=== PATIENT | female | born 1980 | race Caucasian/White ===

== ENCOUNTER 2016-06-21 09:13 | Emergency (ER) | payer OTHER ==
[~2016-06-21] VITALS: Ht 157.5 cm; Wt 68.0 kg
[2016-06-21 09:14] VITALS: Ht 157.5 cm; Wt 68.0 kg
[2016-06-21] MEDS ORDERED: ONDANSETRON 4 MG INJ IV STA (09:52)
[2016-06-21] MEDS ORDERED: KETOROLAC 30 MG INJ IV STA (09:52)
[2016-06-21 10:19] LABS: ADD SCAN DIFF NO
[2016-06-21 10:22] LABS: URINE COLOR LT. YELLOW (YELLOW)
[2016-06-21 10:23] LABS: ADD UMIC YES; URINE BILIRUBIN (Dip) NEGATIVE (NEGATIVE); URINE BLOOD (Dip) TRACE (NEGATIVE); URINE GLUCOSE (Dip) NEGATIVE (NEGATIVE); URINE KETONES (Dip) NEGATIVE (NEGATIVE); URINE LEUKOCYTE ESTERASE (Dip) NEGATIVE (NEGATIVE); URINE NITRITE (Dip) NEGATIVE (NEGATIVE); URINE TOTAL PROTEIN (Dip) NEGATIVE (NEGATIVE); URINE UROBILINOGEN (Dip) 0.2 E.U./dL (0.1-1.0)
[2016-06-21 10:28] LABS: BASOPHIL # 0.1 10^3/ul (0.0-0.1); BASOPHILS % 0.6 % (0.0-2.0); EOSINOPHILS # 0.1 10^3/ul (0.0-0.5); EOSINOPHILS % 1.5 % (0.0-7.0); HEMATOCRIT 39.2 % (37.0-47.0); HEMOGLOBIN 12.5 g/dl (12.0-16.0); LYMPHOCYTES # 2.1 10^3/ul (0.8-2.9); LYMPHOCYTES % 24.2 % (15.0-51.0); MEAN CORPUSCULAR HEMOGLOBIN 26.9 pg (29.0-33.0); MEAN CORPUSCULAR HGB CONC 31.9 g/dl (32.0-37.0); MEAN CORPUSCULAR VOLUME 84.5 fl (82.0-101.0); MEAN PLATELET VOLUME 10.6 fl (7.4-10.4); MONOCYTE # 0.5 10^3/ul (0.3-0.9); MONOCYTES % 5.9 % (0.0-11.0); NEUTROPHIL # 5.8 10^3/ul (1.6-7.5); NEUTROPHILS % 67.4 % (39.0-77.0); PLATELET COUNT 282 10^3/UL (140-415); RED BLOOD COUNT 4.64 10^6/ul (4.20-5.40); RED CELL DISTRIBUTION WIDTH 13.4 % (11.5-14.5); WHITE BLOOD COUNT 8.5 10^3/ul (4.8-10.8)
[2016-06-21 10:29] LABS: ALBUMIN 4.3 g/dl (3.3-4.9)
[2016-06-21 10:30] LABS: POTASSIUM 3.7 mmol/L (3.5-5.1)
[2016-06-21 10:32] LABS: BILIRUBIN,INDIRECT 0.3 mg/dl (0-1.1); BILIRUBIN,TOTAL 0.3 mg/dl (0.2-1.3); CREATININE 0.64 mg/dl (0.44-1.00)
[2016-06-21 10:33] LABS: ALBUMIN/GLOBULIN RATIO 1.38; TOTAL PROTEIN 7.4 g/dl (6.1-8.1)
[2016-06-21 10:38] LABS: BACTERIA,URINE RARE; URINE RBCS 0-2 /HPF (0)
--- NOTE | 2016-06-21 10:56 | RADRPT ---
PROCEDURE: CT Abdomen and Pelvis without contrast. CLINICAL INDICATION: Right upper quadrant pain TECHNIQUE: CT of the abdomen and pelvis was performed on a multi-detector scanner without IV contr ast. Coronal and sagittal images were reformatted from the axial data set. One or more of the foll owing dose reduction techniques were used: automated exposure control, adjustment of the mA and/or kV according to patient size, use of iterative reconstruction technique. CTDI = 13.72 mGy. DLP = 77 4.25 mGy-cm. COMPARISON: None. FINDINGS: CT abdomen: The lung bases are clear. The heart size is normal, without pericardial effusion. Liver demonstrat es scattered benign cysts. Cholelithiasis is noted without evidence for cholecystitis. Biliary ozzie e, pancreas, spleen, adrenal glands and left kidney are unremarkable. Tiny nonobstructive right joshua al calculus is noted, without ureterolithiasis or obstructive uropathy. The stomach is grossly unre markable. The aorta is of normal caliber. There is no retroperitoneal lymphadenopathy. The kevyn hepatis reg ion is clear. CT pelvis: No bowel obstruction, free intraperitoneal air or abscess is identified. The appendix is well visua lized and normal. There is no diverticulosis, diverticulitis or colitis. Urinary bladder, uterus a nd adnexa are grossly unremarkable. No pelvic mass, free fluid or lymphadenopathy is identified. The surrounding osseous structures are unremarkable. No osteolytic or osteoblastic lesion is detect ed. IMPRESSION: 1. Cholelithiasis is noted without evidence for cholecystitis. 2. Tiny nonobstructive right renal calculus is seen, without ureterolithiasis or obstructive uropat hy. 3. Normal appendix. 4. No mass, lymphadenopathy, or focal acute inflammatory process is identified. RPTAT: PP .Irving Garcia MD, MD Date Time Electronically viewed and signed by .Irving Garcia MD, MD on 06/21/2016 10:55 .R/
[2016-06-21] MEDS ORDERED: IBUP-1542 PO (11:03)
[2016-06-21] MEDS ORDERED: ONDA4TAB14 PO (11:15)
[2016-06-21] MEDS ORDERED: HYDR-906 PO (11:15)
--- NOTE | 2016-06-21 11:21 | ERD ---
ER Documentation Chief Complaint Date/Time DATE: 06/21/16 TIME: 11:20 Chief Complaint rt flank pain x 1 week on and off with nausea HPI Patient is a 36-year-old female who presents with intermittent right flank pain 1 week. Patient states that the pain originates in her right flank region and radiates up into her right abdomen. Patient states that the pain has been intermittent for the last week. Patient states today the pain was more severe. Patient states that her current pain is a 8 out of 10. Patient states her pain is worse with deep breaths. Patient denies any chest pain, shortness of breath, vomiting, fever, chills. Patient does report feeling nauseous. Patient also complains of malodorous urine. She denies any frequency, urgency or hematuria. Patient states her last menstrual period was on June 07, 2016. Patient denies any excessive vaginal discharge or vaginal bleeding. ROS All systems reviewed and are negative except as per history of present illness. Medications Home Meds Active Scripts Ondansetron (Ondansetron Odt) 4 Mg Tab.rapdis, 4 MG PO Q6H Y for NAUSEA AND/OR VOMITING, #10 TAB Prov:BRENTON ABRAMS-C 06/21/16 Hydrocodone/Acetaminophen (Marceline 5-325 Tablet) 1 Each Tablet, 1 TAB PO Q6H Y for PAIN, #7 TAB Prov:BRENTON ABRAMS-C 06/21/16 Ibuprofen* (Ibuprofen*) 600 Mg Tablet, 600 MG PO Q6, #30 TAB Prov:BRENTON ABRAMS-C 06/21/16 Allergies Allergies: Coded Allergies: No Known Allergy (Verified Allergy, Mild, 03/28/07) PMhx/Soc History of Surgery: No Anesthesia Reaction: No Hx Neurological Disorder: No Hx Respiratory Disorders: No Hx Cardiac Disorders: No Hx Psychiatric Problems: No Hx Miscellaneous Medical Probl: No Hx Alcohol Use: No Hx Substance Use: No Hx Tobacco Use: No Physical Exam Vitals Vital Signs Date Time Temp Pulse Resp B/P Pulse Ox O2 Delivery O2 Flow Rate FiO2 06/21/16 09:14 98.2 77 18 142/91 98 Physical Exam GENERAL: Well-developed, well-nourished female. Appears in no acute distress. HEAD: Normocephalic, atraumatic. EYES: Pupils are equally reactive bilaterally. EOMs grossly intact. No conjunctival erythema. ENT: Moist mucous membranes. No uvula deviation. No kissing tonsils. NECK: Supple. No meningismus. Normal range of motion of the neck. LUNG: Clear to auscultation bilaterally. No rhonchi, wheezing, rales or coarse breath sounds. HEART: Regular rate and rhythm. No murmurs, rubs or gallops. ABDOMEN: No scars, ecchymosis or rashes noted. Soft and nondistended. Tender to palpation in the right upper quadrant, right lower quadrant. Positive bowel sounds in all four quadrants. No rebound tenderness, no guarding. (-) McBurney' s point tenderness. +R CVA tenderness. BACK: No midline tenderness. EXTREMITIES: Equal pulses bilaterally. No peripheral clubbing, cyanosis or edema. No unilateral leg swelling. NEUROLOGIC: Alert and oriented. Moving all four extremities without any difficulty. Normal speech. Steady gait. SKIN: Normal color. Warm and dry. No rashes or lesions. Result Diagram: 06/21/16 1004 06/21/16 1004 Results 24 hrs Laboratory Tests Test 06/21/16 10:04 White Blood Count 8.510^3/ul Red Blood Count 4.6410^6/ul Hemoglobin 12.5g/dl Hematocrit 39.2% Mean Corpuscular Volume 84.5fl Mean Corpuscular Hemoglobin 26.9pg Mean Corpuscular Hemoglobin Concent 31.9g/dl Red Cell Distribution Width 13.4% Platelet Count 30525^3/UL Mean Platelet Volume 10.6fl Neutrophils % 67.4% Lymphocytes % 24.2% Monocytes % 5.9% Eosinophils % 1.5% Basophils % 0.6% Nucleated Red Blood Cells % 0.0/100WBC Neutrophils # 5.810^3/ul Lymphocytes # 2.110^3/ul Monocytes # 0.510^3/ul Eosinophils # 0.110^3/ul Basophils # 0.110^3/ul Nucleated Red Blood Cells # 0.010^3/ul Urine Color LT. YELLOW Urine Clarity CLEAR Urine pH 5.5 Urine Specific [place] <=1.005 Urine Ketones NEGATIVE Urine Nitrite NEGATIVE Urine Bilirubin NEGATIVE Urine Urobilinogen 0.2 E.U./dL Urine Leukocyte Esterase NEGATIVE Urine Microscopic RBC 0-2/HPF Urine Microscopic WBC 0-2/HPF Urine Epithelial Cells RARE Urine Bacteria RARE Urine Hemoglobin TRACE Urine Glucose NEGATIVE% Urine Total Protein NEGATIVE Sodium Level 139mmol/L Potassium Level 3.7mmol/L Chloride Level 103mmol/L Carbon Dioxide Level 28mmol/L Anion Gap 12 Blood Urea Nitrogen 8mg/dl Creatinine 0.64mg/dl Glucose Level 98mg/dl Calcium Level 9.0mg/dl Total Bilirubin 0.3mg/dl Direct Bilirubin 0.00mg/dl Indirect Bilirubin 0.3mg/dl Aspartate Amino Transf (AST/SGOT) 24IU/L Alanine Aminotransferase (ALT/SGPT) 31IU/L Alkaline Phosphatase 57IU/L Total Protein 7.4g/dl Albumin 4.3g/dl Globulin 3.10g/dl Albumin/Globulin Ratio 1.38 Lipase 84U/L Current Medications Medications (Trade) Dose Ordered Sig/Berta Route PRN Reason Start Time Stop Time Status Last Admin Dose Admin Ondansetron HCl (Zofran Inj) 4 mg ONCE STAT IV 06/21/16 09:52 06/21/16 09:54 DC 06/21/16 10:12 Ketorolac Tromethamine (Toradol) 30 mg ONCE STAT IV 06/21/16 09:52 06/21/16 09:54 DC 06/21/16 10:13 Procedures/MDM ED COURSE: The patient was stable throughout ED course. I kept the patient and/or family informed of laboratory and diagnostic imaging results throughout the ED course. DIAGNOSTIC IMAGING: Read by radiologist. DIAGNOSTIC IMAGING REPORT Patient: BLAIRE ROCHA : 1980 Age: 36 Sex: F MR #: [id number] DOS: 06/21/16 0952 Ordering MD: BRENTON ABRAMS PA-C Location: [facility] Room/Bed: PROCEDURE: CT Abdomen and Pelvis without contrast. CLINICAL INDICATION: Right upper quadrant pain TECHNIQUE: CT of the abdomen and pelvis was performed on a multi-detector scanner without IV contrast. Coronal and sagittal images were reformatted from the axial data set. One or more of the following dose reduction techniques were used: automated exposure control, adjustment of the mA and/or kV according to patient size, use of iterative reconstruction technique. CTDI = 13.72 mGy. DLP = 774.25 mGy-cm. COMPARISON: None. FINDINGS: CT abdomen: The lung bases are clear. The heart size is normal, without pericardial effusion. Liver demonstrates scattered benign cysts. Cholelithiasis is noted without evidence for cholecystitis. Biliary tree, pancreas, spleen, adrenal glands and left kidney are unremarkable. Tiny nonobstructive right renal calculus is noted, without ureterolithiasis or obstructive uropathy. The stomach is grossly unremarkable. The aorta is of normal caliber. There is no retroperitoneal lymphadenopathy. The kevyn hepatis region is clear. CT pelvis: No bowel obstruction, free intraperitoneal air or abscess is identified. The appendix is well visualized and normal. There is no diverticulosis, diverticulitis or colitis. Urinary bladder, uterus and adnexa are grossly unremarkable. No pelvic mass, free fluid or lymphadenopathy is identified. The surrounding osseous structures are unremarkable. No osteolytic or osteoblastic lesion is detected. IMPRESSION: 1. Cholelithiasis is noted without evidence for cholecystitis. 2. Tiny nonobstructive right renal calculus is seen, without ureterolithiasis or obstructive uropathy. 3. Normal appendix. 4. No mass, lymphadenopathy, or focal acute inflammatory process is identified. RPTAT: PP .Irving Garcia MD, Date Time Electronically viewed and signed by .Irving Garcia MD, on 06/21/2016 10: 55 .R/ CC: BRENTON ABRAMS PA-C MEDICATIONS GIVEN: Toradol, Zofran Patient tolerated medication well with no adverse reactions. Patient reported improvement in pain. MEDICAL DECISION MAKING: This is a 36-year-old female who presents with right flank pain radiating into her right abdomen 1 week. Patient does report nausea. Patient denies any fevers, chills, vomiting, vaginal bleeding or vaginal discharge. Vital signs were reviewed. Patient is afebrile. CBC showed no evidence of systemic infection or severe anemia. CMP showed no evidence of electrolyte abnormalities , severe acidosis, alkalosis, renal failure, or liver disease. Lipase showed no evidence of acute pancreatitis. UA showed no evidence of acute infection or hematuria. Low suspicion for UTI, pyelonephritis or nephrolithiasis. Urine test was negative. CT abdomen and pelvis showed Cholelithiasis is noted without evidence for cholecystitis. Tiny nonobstructive right renal calculus is seen, without ureterolithiasis or obstructive uropathy. Normal appendix. No mass, lymphadenopathy, or focal acute inflammatory process is identified. At this time, patient's presentation is most consistent with biliary colic, cholelithiasis and nephrolithiasis. I have a much lower clinical concern for acute coronary syndrome, lower lobe pneumonia, DKA, bowel perforation, cholecystitis, choledocholithiasis, ascending cholangitis, hepatic abscess, pancreatitis, splenic rupture, diverticulitis, UTI, pyelonephritis, appendicitis , constipation, , ectopic , PID, ovarian torsion or tubo- ovarian abscess. PRESCRIPTIONS: Ibuprofen, Marceline, Zofran DISCHARGE: At this time, patient is stable for discharge and outpatient management. Patient was provided with a copy of all imaging studies and lab studies. I have instructed the patient to follow-up with his/her primary care physician in 1-2 days. She was advised that she will need to follow-up with the general surgeon for possible elective cholecystectomy if her pain persists. I have instructed the patient to promptly return to the ER at any time for any new or worsening symptoms including increased pain, nausea, vomiting, diarrhea, fever, weakness or LOC. The patient and/or family expressed understanding of and agreement with this plan. All questions were answered. Home care instructions were provided. Departure Diagnosis: Primary Impression: Cholelithiasis Cholelithiasis location: gallbladder Cholecystitis presence: without cholecystitis Biliary obstruction: without biliary obstruction Qualified Code : K80.20 - Calculus of gallbladder without cholecystitis without obstruction Additional Impression: Biliary colic Condition: Stable Patient Instructions: Gallstones Referrals: VIVIEN JIMENES MD,JENIFER GERMAN,AL GRIMALDO MD, M.D. FORMERLY [facility] YOU HAVE RECEIVED A MEDICAL SCREENING EXAM AND THE RESULTS INDICATE THAT YOU DO NOT HAVE A CONDITION THAT REQUIRES URGENT TREATMENT IN THE EMERGENCY DEPARTMENT. FURTHER EVALUATION AND TREATMENT OF YOUR CONDITION CAN WAIT UNTIL YOU ARE SEEN IN YOUR DOCTORS OFFICE WITHIN THE NEXT 1-2 DAYS. IT IS YOUR RESPONSIBILITY TO MAKE AN APPOINTMENT FOR FOLOW-UP CARE. IF YOU HAVE A PRIMARY DOCTOR --you should call your primary doctor and schedule an appointment IF YOU DO NOT HAVE A PRIMARY DOCTOR YOU CAN CALL OUR PHYSICIAN REFERRAL HOTLINE AT IF YOU CAN NOT AFFORD TO SEE A PHYSICIAN YOU CAN CHOSE FROM THE FOLLOWING [facility] [address] [place] [facility] [address] [place] [facility] [address] [facility] [address] [facility] [address] [facility]. [facility] [address] [facility]. [facility] YOU HAVE RECEIVED A MEDICAL SCREENING EXAM AND THE RESULTS INDICATE THAT YOU DO NOT HAVE A CONDITION THAT REQUIRES URGENT TREATMENT IN THE EMERGENCY DEPARTMENT. FURTHER EVALUATION AND TREATMENT OF YOUR CONDITION CAN WAIT UNTIL YOU ARE SEEN IN YOUR DOCTORS OFFICE WITHIN THE NEXT 1-2 DAYS. IT IS YOUR RESPONSIBILITY TO MAKE AN APPOINTMENT FOR FOLOW-UP CARE. IF YOU HAVE A PRIMARY DOCTOR --you should call your primary doctor and schedule and appointment IF YOU DO NOT HAVE A PRIMARY DOCTOR YOU CAN CALL OUR PHYSICIAN REFERRAL HOTLINE AT . IF YOU CAN NOT AFFORD TO SEE A PHYSICIAN YOU CAN CHOSE FROM THE FOLLOWING [facility] INSTITUTIONS: [facility] [address] [place] [address] [facility] [address] [place] [address] [facility] [address] [place] [address] Additional Instructions: Call your primary care doctor TOMORROW for an appointment during the next 1-2 days.See the doctor sooner or return here if your condition worsens before your appointment time. Patient will need to follow-up with general surgeon for elective cholecystectomy if patient's pain persists. BRENTON ABRAMS PA-C Jun 21, 2016 11:21
== END 2016-06-21 11:30 | disposition home or self-care (01) ==
LOC: FTE 09:13
DX: K80.70 Calculus of gallbladder and bile duct without cholecystitis without obstruction (principal); R11.0 Nausea
CPT/HCPCS: 36415; 74176; 80053; 81001; 81003; 83690; 85025; 96374; 96375; J1885; J2405; Z7502

== ENCOUNTER 2016-12-18 23:51 | Emergency (ER) | payer OTHER ==
[~2016-12-18] VITALS: Ht 162.6 cm; Wt 69.0 kg
[~2016-12-18 23:51] MED LIST: HYDR-906 PO; IBUP-1542 PO; ONDA4TAB14 PO
[2016-12-18 23:53] VITALS: Ht 162.6 cm; Wt 69.0 kg
[2016-12-19] MEDS ORDERED: LORA1TAB54 PO (00:47)
[2016-12-19] MEDS ORDERED: AMOX500C2 PO (00:47)
[2016-12-19] MEDS ORDERED: ACET325T33 PO (00:47)
--- NOTE | 2016-12-19 00:53 | ERD ---
ER Documentation Chief Complaint Date/Time DATE: 12/19/16 TIME: 00:51 Chief Complaint cough x 4 days, fever, chest congestion HPI Is a 36-year-old female presenting to the emergency department complaining of fever, cough, congestion and left ear pain. She denies any chest pain or shortness of breath. She has not tried any other medications ROS All systems reviewed and are negative except as per history of present illness. Medications Home Meds Active Scripts Loratadine/Pseudoephedrine* (Claritin-D* 12 Hr) 5-120 Mg Tab.er.12h, 1 TAB PO Q12, #15 TAB.SA Prov:JER GÓMEZC 12/19/16 Acetaminophen* (Tylenol*) 325 Mg Tablet, 2 TAB PO Q6 Y for PAIN AND OR ELEVATED TEMP, #20 TAB Prov:JER GÓMEZC 12/19/16 Amoxicillin* (Amoxicillin*) 500 Mg Cap, 500 MG PO BID for 10 Days, CAP Prov:JER GÓMEZC 12/19/16 Ondansetron (Ondansetron Odt) 4 Mg Tab.rapdis, 4 MG PO Q6H Y for NAUSEA AND/OR VOMITING, #10 TAB Prov:BRENTON ABRAMS PA-C 06/21/16 Hydrocodone/Acetaminophen (Dubach 5-325 Tablet) 1 Each Tablet, 1 TAB PO Q6H Y for PAIN, #7 TAB Prov:BRENTON ABRAMSC 06/21/16 Ibuprofen* (Ibuprofen*) 600 Mg Tablet, 600 MG PO Q6, #30 TAB Prov:BRENTON ABRAMS PA-C 06/21/16 Allergies Allergies: Coded Allergies: No Known Allergy (Verified Allergy, Mild, 03/28/07) PMhx/Soc History of Surgery: Yes (c/s x2) Anesthesia Reaction: No Hx Neurological Disorder: No Hx Respiratory Disorders: Yes (bronchitis) Hx Cardiac Disorders: No Hx Psychiatric Problems: No Hx Miscellaneous Medical Probl: Yes Hx Alcohol Use: No Hx Substance Use: No Hx Tobacco Use: No Smoking Status: Never smoker Physical Exam Vitals Vital Signs Date Time Temp Pulse Resp B/P Pulse Ox O2 Delivery O2 Flow Rate FiO2 12/18/16 23:53 99.5 95 20 130/80 97 Physical Exam Const: [] Head: Atraumatic Eyes: Normal Conjunctiva ENT: Left hepatic membrane is erythematous. Neck: Full range of motion..~ No meningismus. Resp: Clear to auscultation bilaterally Cardio: Regular rate and rhythm, no murmurs Abd: Soft, non tender, non distended. Normal bowel sounds Skin: No petechiae or rashes Back: No midline or flank tenderness Ext: No cyanosis, or edema Neur: Awake and alert Psych: Normal Mood and Affect Procedures/MDM This is a 36-year-old female presenting to the emergency department with signs and symptoms most consistent with a viral upper respiratory infection with possible secondary acute otitis media. There is no evidence of pneumonia, strep pharyngitis. Patient will be given prescription for amoxicillin, Claritin Tylenol. Departure Diagnosis: Primary Impression: URI (upper respiratory infection) Additional Impression: Acute otitis media Condition: Stable Patient Instructions: Otitis Media, Abx Tx (Adult), Uri, Viral, No Abx (Adult) JER GÓMEZ PA-C Dec 19, 2016 00:53
== END 2016-12-19 00:50 | disposition home or self-care (01) ==
LOC: FTE 23:51
DX: J06.9 Acute upper respiratory infection, unspecified (principal); H66.92 Otitis media, unspecified, left ear
CPT/HCPCS: 99283